=== PATIENT | female | born 1985 | race Caucasian/White ===

== ENCOUNTER 2025-03-27 11:19 | Emergency (ER) | payer MEDICAID ==
[~2025-03-27] VITALS: Ht 160 cm; Wt 72.6 kg
[2025-03-27 11:31] VITALS: TEMP 98.9
[2025-03-27] MEDS ORDERED: FAMOTIDINE/PF INJ 20 MG/2 ML VIAL IV ONE (11:43)
[2025-03-27] MEDS ORDERED: ONDANSETRON HCL/PF 4 MG/2 ML VIAL ONE (11:43)
[2025-03-27] MEDS: IV NS 0.9% 1,000 ML BAG IV ONE (12:00)
[2025-03-27] MEDS: ONDANSETRON HCL/PF 4 MG/2 ML VIAL IVP ONE (12:00)
[2025-03-27] MEDS: FAMOTIDINE/PF INJ 20 MG/2 ML VIAL IV ONE (12:00)
[2025-03-27 12:02] LABS: PLATELET COUNT (AUTO) 388 K/uL (150-450); RED BLOOD CELL COUNT(AUTO) 4.76 MIL/uL (4.0-5.2); RED CELL DISTRIBUTION WIDTH 14.2 % (11.5-15.0); WHITE BLOOD COUNT (AUTO) 8.1 K/uL (4.3-11.0)
[2025-03-27 12:20] LABS: CALCIUM, SERUM 9.0 mg/dL (8.5-10.1); CREATININE 0.7 mg/dL (0.6-1.3); SODIUM SERUM 139.0 mmol/L (136-145); UREA NITROGEN, BLOOD 16.0 mg/dL (7-18)
[2025-03-27 12:28] LABS: ASPARTATE AMINOTRANSFERASE 25.0 U/L (15-37); TOTAL PROTEIN, SERUM 7.9 g/dL (6.4-8.2)
[2025-03-27] MEDS ORDERED: KETOROLAC TROMETHAMINE INJ 30 MG/ML VIAL ONE (12:51)
[2025-03-27] MEDS: KETOROLAC TROMETHAMINE INJ 30 MG/ML VIAL IV ONE (12:53)
[2025-03-27] MEDS ORDERED: ONDA4TAB5 PO (13:19)
[2025-03-27 13:35] VITALS: BP 116/78; O2SAT 98
[2025-03-27 14:17] LABS: PREGNANCY TEST URINE QUAL NEGATIVE (NEGATIVE)
[2025-03-27 14:20] LABS: APPEARANCE,URINE SLIGHTLY CLOUDY (CLEAR); BLOOD, URINE NEGATIVE Ery/uL (NEGATIVE); LEUKOCYTE ESTERASE ,URINE NEGATIVE (NEGATIVE); NITRITE, URINE NEGATIVE (NEGATIVE); UGLUCOSE NEGATIVE (NEGATIVE)
[2025-03-27 15:15] LABS: SQUAMOUS EPITHELIAL CELL,UR Many /HPF (None Seen)
[2025-03-27 15:16] LABS: ADD URINE CULTURE YES
== END 2025-03-27 13:34 | disposition home or self-care (01) ==
LOC: ER 11:53
DX: R10.20 Pelvic and perineal pain unspecified side (principal); R11.2 Nausea with vomiting, unspecified
CPT/HCPCS: 99285; 96374; 76856; 96375; 96361; 85025; 80048; 87086; 83690; 80076; 84703; 81001; 36415; 84702; J1885; J1308; J2405